=== PATIENT | male | born 1980 | race Caucasian/White ===

== ENCOUNTER 2021-11-02 14:19 | Emergency (ER) | payer SELFPAY ==
[2021-11-02 14:26] VITALS: BP 137/93; PULSE 93; RESP 18; TEMP 36.4; O2SAT 99
--- NOTE | 2021-11-02 14:29 | ED.WOUNDLAC ---
HPI - Wound/Laceration General Chief Complaint: Wound/Laceration Stated Complaint: R HAND LACERATION Time Seen by Provider: 11/02/21 14:28 Source: patient Mode of arrival: ambulatory Limitations: other ( PATIENT REFUSED TO SAY HOW HE CUT HIS HAND OTHER THAN THE CUT ON A PIECE OF METAL.) History of Present Illness HPI narrative: PATIENT CUT HIS R HAND PALM JUST BELOW THE LITTLE FINGER ON A PIECE OF METAL. NO NUMBNESS OR TINGLING OR LOSS OF FUNCTION OR ROM. TETANUS OVERDUE. REFUSES BOOSTER. Related Data Allergies Allergy/AdvReac Type Severity Reaction Status Date / Time No Known Allergies Allergy Verified 11/02/21 14:25 Review of Systems Review of Systems: All systems reviewed & are unremarkable except as noted in HPI and below Musculoskeletal: Musculoskeletal: Reports as per HPI Integumentary/Breasts: Skin/Breast: Reports as per HPI and Reports wounds Neurologic: Reports as per HPI, Denies Sensory deficit (Neuro), Denies tingling, Denies paresthesias and Denies weakness PMFSH Past Medical History Medical History (Updated 11/02/21 @ 15:24 by Lito Carroll MD) Right hand fracture Surgical History Surgical History (Updated 11/02/21 @ 15:25 by Lito Carroll MD) History of tonsillectomy Exam Narrative: PATIENT IS ALERT AND ORIENTED X4 APPEARS IN NO APPARENT DISTRESS. LEFT HAND 2 CM LACERATION ON THE PALMAR ASPECT OF HIS LEFT PALM JUST BELOW THE LITTLE FINGER. NO FOREIGN BODY SEEN. NO TENDON INJURY. PATIENT HAS GOOD FLEXION EXTENSION ALL THE FINGERS. NORMAL RADIAL ULNAR AND MEDIAN NERVE TESTING. PATIENT HAS FULL RANGE OF MOTION OF HIS LEFT HAND FINGER AND WRIST. CAPILLARY REFILL IS +2. Const: General: No cooperative Nutritional Appearance: average body habitus Orientation/consciousness: oriented to person, oriented to place, oriented to time and patient oriented x3 Course Course Emergency Course: RIGHT HAND SUTURED PT TOLD NURSE HE WAS NOT GETTING RX FILLED 'CAUSE HE DON'T NEED THAT AND HE'S TAKEN HIS STITCHES OUT HIMSELF. Vital Signs Vital signs: Vital Signs Temperature 36.4 C 11/02/21 14:26 Pulse Rate 93 11/02/21 14:26 Respiratory Rate 18 11/02/21 14:26 Blood Pressure 137/93 H 11/02/21 14:26 Pulse Oximetry 99 11/02/21 14:26 Oxygen Delivery Room Air 11/02/21 14:26 Temperature 36.4 C 11/02/21 14:26 Pulse Rate 93 11/02/21 14:26 Respiratory Rate 18 11/02/21 14:26 Blood Pressure 137/93 H 11/02/21 14:26 Pulse Oximetry 99 11/02/21 14:26 Oxygen Delivery Room Air 11/02/21 14:26 Procedures Laceration RIGHT PALM LACERATION: Date: 11/02/21 Time: 14:40 Site: hand Side (If applicable): right Size (cm): 2 (CM) Description: linear Depth: simple, single layer Local Anesthetic: lidocaine 1% Amount of anesthesia used (mL): 5 Pre-repair: wound explored, irrigated and irrigated extensively (TAP WATER) ====== Skin Level ====== Skin layer closed with: nylon Size (cm): 4-0 Number of sutures: 3 Technique: simple, interrupted ====== Subcutaneous Layer ====== ====== Muscle Layer ====== ====== Tendon Layer ====== Dressing: HAND WAS SCRUBBED WITH SOAP AND WATER. ANTIBIOTIC OINTMENT AND JESENIA/TELFA PAD. PT TOLERATED PROCEDURE WELL. PT WAS INSTRUCTED TO HAVE SUTURES REMOVED IN 10 [address] ESTRADA AT THE [facility] BUT HE STATED HE WOULD PROBABLY BE TAKING THEM OUT HIMSELF IN 1 WEEK WHEN HE THOUGHT IT WOULD BE HEALED. I RECOMMENDED AGAINST THAT. Discharge Plan Discharge Clinical Impression: Laceration of hand, right Patient Disposition: Home, Self-Care Condition: Improved Instructions: Antibiotic Form, Care For Your Stitches (ED), Laceration (ED) Additional Instructions: FOLLOW-UP WITH DR. ESTRADA AT [facility] TO REMOVE SUTURES IN 10-14 DAYS. RETURN IF YOU HAVE ANY REDNESS PAIN SWELLING DISCHARGE OR REDNESS TO T
--- NOTE | 2021-11-02 15:06 | PC.NURSE ---
1506 erp at bedside suturing pts hand. Pt states unsure when he had his last tetanus shot. States was received last visit at [facility]. Unable to verify. Pt refuses tetanus at this time.
== END 2021-11-02 15:30 | disposition home or self-care (01) ==
PROVIDERS: Emergency Provider Emergency Medicine
DX: S61.411A Laceration without foreign body of right hand, initial encounter (principal); W45.8XXA Other foreign body or object entering through skin, initial encounter
CPT/HCPCS: 12001; 99283

== ENCOUNTER 2023-11-22 01:13 | Emergency (ER) | payer SELFPAY ==
--- NOTE | 2023-11-22 01:14 | PC.NURSE ---
Pt presents for DUI collection kit with ISP. ISP presented warrant for collection. Pt A&O x 4, consents to DUI collection. Pt refusing any medical treatment or assessment by ERP. Chain of custody remained intact. This RN and Deysi Villegas, ISP #[id number] present through out collection. Contents were sealed and given to Yash. Bakari.
== END 2023-11-22 01:40 ==
LOC: CHSED 01:25
PROVIDERS: Emergency Provider Emergency Medicine
DX: Z02.83 Encounter for blood-alcohol and blood-drug test (principal)
CPT/HCPCS: 99199